=== PATIENT | male | born 1995 | race Caucasian/White ===

== ENCOUNTER 2025-11-08 03:15 | Emergency (ER) | payer BC, OTHER ==
[~2025-11-08] VITALS: Ht 177.8 cm; Wt 93.0 kg
[2025-11-08] VITALS (7 sets, daily range): BP systolic 105–128; BP diastolic 64–84
[2025-11-08] MEDS ORDERED: Glucagon 1 MG/KIT VIAL IV ONE (04:10)
[2025-11-08] MEDS ORDERED: Lidocaine 2% Viscous Soln 15 ML UDC PO ONE (04:10)
[2025-11-08] MEDS ORDERED: Glucagon, Human Recombinant 1 MG/Vial IV ONE (04:15)
--- NOTE | 2025-11-08 07:15 | NUR ---
INTO [facility] VIA WHEEL CHAIR. PT DENIES PAIN, BUT REPORTS "HEART BURN." PT REPORTS FEELING "ANXIOUS." HISTORY AND ALLERGIES REVIEWED. NPO SINCE 2199. PT HAVING DIFFICULTY SWALLOWING SALIVA. LUNGS CLEAR. NO NOTED SOB. SATS>90% ON RA. PT MEMO HAS BELONGINGS. PT GLASSES AND PHONE ON CHART.
[2025-11-08] MEDS ORDERED: Midazolam HCl 1MG / ML 2ML Vial ONE (07:19)
[2025-11-08] MEDS ORDERED: FentaNYL Citrate 50 MCG/ML 2 ML Injection ONE (07:19)
[2025-11-08] MEDS ORDERED: Sugammadex Sodium 200 MG/2ML SDV (100 MG/ML) ONE (07:40)
--- NOTE | 2025-11-08 07:40 | NUR ---
#20 PIV TO RAC WITH GOOD BLOOD RETURN AND FLUSHES WELL. SITE C/D/I.
[2025-11-08] MEDS ORDERED: Ondansetron HCl 2 MG / ML 2ML Vial ONE (07:41)
[2025-11-08] MEDS ORDERED: Dexamethasone Sod Phos 10 MG/ML 1ML VIAL ONE (07:41)
--- NOTE | 2025-11-08 08:38 | NUR ---
11/08/25 0838 Salima Gatica INTO OR @ 0746- PROCEDURE DONE UNDER GENERAL ANESTHESIA. SEE ANESTHESIA RECORD.
--- NOTE | 2025-11-08 09:37 | NUR ---
PT WEANED OFF 02 DOING WELL SAT 98 AT D/C Patient States Post-Procedure ride home has been arranged. Discharged via wheelchair to private car for ride home. Discharge instructions reviewed with patient. Patient verbalizes understanding. Copy given to patient to take home.
== END 2025-11-08 07:05 | disposition other institution (70) ==
LOC: ER 03:15
DX: T18.128A Food in esophagus causing other injury, initial encounter (principal); W44.F3XA Food entering into or through a natural orifice, initial encounter
CPT/HCPCS: 96374-59; 99284-25; A9270; J1100; J1610; J2250; J2405; J2704; J3010; J7120